=== PATIENT | female | born 1960 | race Caucasian/White ===

== ENCOUNTER 2019-07-01 16:24 | Inpatient (IN) | payer MEDICARE, OTHER, SELFPAY ==
[2019-07-01] MEDS ORDERED: cefTRIAXone\\ROCEPHIN 2 GM VIAL ONE (17:07)
[2019-07-01] MEDS ORDERED: methylPREDNISolone Sod Succ/PF 125 MG/2 ML VIAL ONE (17:07)
[2019-07-01 17:14] LABS: #Basophils 0.1 thou/uL (0.0-0.2); #Eosinphils 0.1 thou/uL (0.0-0.7); #Lymphocytes 3.4 thou/uL (1.20-3.40); #Monocytes 0.9 thou/uL (0.11-0.59); #Neutrophils 9.8 thou/uL (1.40-6.50); %Basophils 0.6 % (0.0-1.0); %Eosinophils 0.8 % (0.0-10.0); %Lymphocytes 23.6 % (21.0-51.0); %Monocytes 6.5 % (0.0-10.0); %Neutrophils 68.5 % (42.0-75.0); Hemoglobin 15.9 g/dL (12.0-16.0); Mean Corpuscular HGB CONC 32.8 g/dL (32.0-36.0); Mean Corpuscular Hemoglobin 29.5 pg (27.0-31.0); Mean Corpuscular Volume 90.1 fL (78.0-98.0); Mean Platelet Volume 8.1 fL (7.4-10.4); Platelet Count 256 thou/uL (130-400); RBC Distribution Width 12.1 % (11.5-14.5); Red Blood Cell (RBC) Count 5.39 mill/uL (4.20-5.40); White Blood Cell (WBC) Count 14.4 thou/uL (4.8-10.8)
--- NOTE | 2019-07-01 17:29 | RAD ---
PORTABLE CHEST: 07/01/19 HISTORY: Shortness of breath. COMPARISON: 09/05/16 exam. Heart size and mediastinum are within normal limits. The lungs are clear of infiltrates. No significa nt bony findings. IMPRESSION: No active intrathoracic disease. POS: [facility]
[2019-07-01 17:34] LABS: Base Excess-Venous 7.9 mmol/L (-2.0 to 3.0); Bicarbonate (HCO3v) 36.6 mmol/L (22.0-28.0); CO2 Tension (PvCO2) 66.6 mmHg (40.0-50.0); Calcium, Ionized 1.14 mmol/L (See Comments:); Chloride 98 mmol/L (98-107); Hemoglobin - Calc 15.7 g/dL (12.0-16.0); Potassium 5.2 mmol/L (3.5-5.1); Sodium 143 mmol/L (138-145); T. Carbon Dioxide 38.6 mmol/L (22.0-28.0); vO2 Saturation-calc 52.6 % (60.0-85.0)
[2019-07-01 17:35] LABS: ALT (SGPT) 13 U/L (8-55); AST (SGOT) 11 U/L (5-34); Albumin 3.8 g/dL (3.5-5.0); Alkaline Phosphatase 115 U/L (40-110); Anion Gap 15 mmol/L (10-20); BUN (Urea Nitrogen) 11 mg/dL (9.8-20.1); Bilirubin, Total 0.3 mg/dL (0.2-1.2); Calc. Creatinine Clearance 0 mL/min (70-130); Calcium 9.6 mg/dL (7.8-10.44); Carbon Dioxide 35 mmol/L (22-29); Chloride 98 mmol/L (98-107); Estimated GFR-MDRD 87; Glucose 129 mg/dL (70-105); Potassium 3.5 mmol/L (3.5-5.1); Protein, Total 6.8 g/dL (6.0-8.3); Sodium 144 mmol/L (136-145)
[2019-07-01] MEDS ORDERED: Azithromycin 500 MG VIAL ONE (17:39)
[2019-07-01] MEDS ORDERED: Nicotine 14 MG PATCH TD PRN (18:43)
[2019-07-01] MEDS ORDERED: Acetaminophen 325 MG TAB PO PRN (18:45)
[2019-07-01 19:23] VITALS: BMI 39.1
[2019-07-01 20:05] LABS: Lactic Acid 1.6 mmol/L (0.5-2.2)
[2019-07-01] MEDS: Senokot S 8.6-50 MG TAB PO SCH (20:26)
[2019-07-01] MEDS: ALPRAZolam 0.25 MG TAB PO PRN (20:26)
[2019-07-01] MEDS: guaiFENesin ER 600 MG TAB PO SCH (20:26)
[2019-07-01] MEDS: Famotidine 20 MG TAB PO SCH (20:26)
[2019-07-01] MEDS: Melatonin 3 MG TAB PO PRN (20:33)
[2019-07-01] MEDS: Cyclobenzaprine 10 MG TAB PO PRN (20:33)
[2019-07-01] MEDS: methylPREDNISolone Sod Succ 40 MG VIAL IVP SCH (23:52)
[2019-07-02] MEDS: methylPREDNISolone Sod Succ 40 MG VIAL IVP SCH ×3 (05:33→17:30)
[2019-07-02] MEDS: Budesonide 0.5 MG/2 ML NEB INH SCH ×2 (06:18→18:37)
[2019-07-02 06:50] LABS: Anion Gap 13 mmol/L (10-20); BUN (Urea Nitrogen) 10 mg/dL (9.8-20.1); Calc. Creatinine Clearance 145 mL/min (70-130); Calcium 9.2 mg/dL (7.8-10.44); Carbon Dioxide 32 mmol/L (22-29); Chloride 99 mmol/L (98-107); Estimated GFR-MDRD 90; Glucose 245 mg/dL (70-105); Potassium 4.2 mmol/L (3.5-5.1); Sodium 140 mmol/L (136-145)
--- NOTE | 2019-07-02 08:51 | HP ---
The patient was seen and examined on 01 July 2019 around 6:00 p.m. CHIEF COMPLAINT: Shortness of breath. HISTORY OF PRESENT ILLNESS: The patient is a 59-year-old white female with COPD, ongoing tobacco abuse, on intermittent home O2, presented to the emergency room with shortness of breath and audible wheezing, that has been ongoing for last 1 to 2 weeks. Her symptoms have been progressively getting worse. She has cough productive of thick whitish phlegm. She gets short of breath on minimal exertion. Recently, she have been short of breath while resting. She denies recent immobilization, travel, lower extremity edema, or orthopnea. She wears O2 especially at night. She tried using nebulizer without much relief. She was started on Keflex along with prednisone by her primary care physician without much relief. She presented to the emergency room. Her O2 saturation on ER arrival was 84% on room air with temperature of 99.2, respirations of 24, pulse rate of 113, with a blood pressure 132/75. She received azithromycin, ceftriaxone, Solu-Medrol, IV fluids with DuoNebs in the emergency room. PAST MEDICAL HISTORY: 1. Chronic obstructive pulmonary disease. 2. Tobacco abuse. The patient has not smoked since last week. 3. Anxiety. 4. Hyperlipidemia. 5. Depression. 6. Obesity with a BMI of 39.1. 7. History of colon cancer. PAST SURGICAL HISTORY: 1. Colon resection. 2. Tonsillectomy. ALLERGIES: NO KNOWN DRUG ALLERGIES. CURRENT HOME MEDICATIONS: 1. Albuterol inhaler as needed. 2. Nebulizer treatments. 3. Xanax as needed. 4. Ibuprofen as needed. 5. Keflex and prednisone, which was recently started. She could not bring the accurate list of medications. SOCIAL HISTORY: The patient smoked until last week. She denies any drug use. She currently lives with the . No significant alcohol use. She denies any drug use. FAMILY HISTORY: Negative for premature coronary artery disease. REVIEW OF SYSTEMS: All other review of systems was reviewed and were found negative. PHYSICAL EXAMINATION: VITAL SIGNS: As discussed above. GENERAL: A 59-year-old female in [id number] respiratory distress. Feels somewhat better. HEENT: Head, atraumatic and normocephalic. Sclerae anicteric. Moist mucous membrane. No oral lesion. NECK: Supple. No JVD. No carotid bruit. LUNGS: Show diffuse expiratory wheezing with rhonchi, with scattered rales at bases. There was accessory muscle use. HEART: S1 and S2 present. Tachycardic. No rubs or gallops. ABDOMEN: Soft, obese. Bowel sounds present. There is periumbilical hernia. No rebound or guarding. EXTREMITIES: No calf tenderness. There is 1+ edema in bilateral lower extremity up to the knees. No calf tenderness. SKIN: Warm and dry. LYMPH NODE: No palpable lymph nodes in the neck. NEUROLOGIC: Grossly nonfocal. PSYCHIATRIC: Alert, awake, oriented x3. Normal affect. PERIPHERAL VASCULAR: Radial pulses palpable bilaterally. MUSCULOSKELETAL: No joint swelling or tenderness. LABORATORY FINDINGS: WBC 14.4 with hemoglobin 15.9, platelet count 256. VBG showed pH of 7.34 with pCO2 of 66.6, bicarbonate 37 with PO2 of 30.7. Chemistry showed sodium 144, potassium 3.5, chloride 98, bicarb 35, BUN 11, creatinine 0.69. Troponin was negative. Lactic acid 2.3 on admission that improved to 1.6 after IV hydration. Blood cultures have been obtained. Chest x-ray by my review was negative for definite infiltrate. EKG by my review showed sinus tachycardia without significant ST-T wave changes. IMPRESSION: 1. Acute on chronic hypoxic respiratory failure secondary to COPD exacerbation. 2. Sepsis due to #1. 3. Anxiety. 4. Depression, mild, stable. 5. Degenerative joint disease. 6. Obesity with a BMI of 39.1. 7. Chronic kidney disease, stage 2. 8. Ongoing tobacco abuse. 9. Sinus tachycardia secondary to #1. 10. Suspected obstructive sleep apnea, not on CPAP. PLAN: The patient will be monitored on the medical floor. We will continue empiric antibiotics with steroids. Nebulizer treatment every 4 hours. The patient was extensively counseled to quit smoking. DVT prophylaxis with Lovenox. Consult Pulmonary, Dr. Aj. Plan was discussed with the patient in detail. She stated understanding. Please note, the patient was seen and examined on 01 July 2019. Job ID: [id number]
[2019-07-02] MEDS: guaiFENesin ER 600 MG TAB PO SCH ×2 (08:56→20:38)
[2019-07-02] MEDS: Famotidine 20 MG TAB PO SCH ×2 (08:56→20:37)
[2019-07-02] MEDS: Calcium Carbonate + Vit D 1 TAB PO SCH ×2 (08:56→16:10)
[2019-07-02] MEDS: Multivit, Therapeutic 1 TAB PO SCH (08:56)
[2019-07-02] MEDS: Saccharomyces boulardii 250 MG CAP PO SCH (08:56)
[2019-07-02] MEDS: Ibuprofen 200 MG TAB PO PRN ×2 (08:56→20:38)
[2019-07-02] MEDS: Enoxaparin Sodium 40 MG/0.4 ML SYRINGE SC SCH (08:56)
[2019-07-02] MEDS: Senokot S 8.6-50 MG TAB PO SCH ×2 (08:56→20:38)
[2019-07-02] MEDS: ALPRAZolam 0.25 MG TAB PO PRN (08:56)
[2019-07-02] MEDS ORDERED: FLU VACC QS2019-20(6MOS UP)/PF 60 MCG/0.5 ML SYRINGE IM ONE (09:00)
[2019-07-02 09:20] LABS: Hemoglobin A1c 6.5 % (4.0-6.0)
[2019-07-02] MEDS ORDERED: Insulin Regular 300 UNITS/3 ML VIAL SC PRN ×2 (09:58)
[2019-07-02] MEDS ORDERED: Dextrose 50% Abboject 50 ML SYRINGE SLOW IVP PRN (09:58)
[2019-07-02] MEDS ORDERED: Dextrose 5% in Water 1,000 ML IV PRN (09:58)
[2019-07-02] MEDS: cefTRIAXone\\ROCEPHIN 2 GM in Sodium Chloride 0.9% 100 ML IVPB SCH (16:10)
--- NOTE | 2019-07-02 17:11 | PDOC.HOSPP ---
- Subjective Encounter Date: 07/02/19 Encounter Time: 12:45 Subjective: Patient seen and examined for resp failure. SOB improving. Cough with mild production. No new complaints. No overnight events - Objective Vital Signs & Weight: Vital Signs (12 hours) Temp Pulse Resp BP Pulse Ox 07/02/19 16:23 98.7 F 89 18 94 L 07/02/19 14:37 95 16 07/02/19 11:00 98.4 F 82 18 107/71 94 L 07/02/19 10:15 80 16 07/02/19 08:00 94 L 07/02/19 07:52 98.8 F 80 18 124/78 94 L 07/02/19 06:20 92 L 07/02/19 06:19 92 L 07/02/19 06:18 76 16 Weight Weight 221 lb I&O: 07/01/19 07/02/19 07/03/19 06:59 06:59 06:59 Intake Total 960 Balance 960 Result Diagrams: 07/03/19 04:21 07/04/19 04:57 Additional Labs: Accuchecks 07/02/19 07/02/19 16:30 11:33 POC Glucose 154 H 168 H Radiology Reviewed by me: Yes (CXR - no pneumonia) Hospitalist ROS - Review of Systems Cardiovascular: denies: chest pain, palpitations, orthopnea, paroxysmal noc. dyspnea, edema, light headedness, other Gastrointestinal: denies: nausea, vomiting, abdominal pain, diarrhea, constipation, melena, hematochezia, other - Medication Medications: Active Medications Generic Name Dose Route Start Last Admin Trade Name Freq PRN Reason Stop Dose Admin Albuterol/Ipratropium 3 ml 07/01/19 22:30 07/02/19 14:37 Duoneb NEB 3 ml [id number] AMARIS Administration Albuterol/Ipratropium 3 ml 07/01/19 18:42 07/01/19 19:26 Duoneb NEB 3 ml [id number] PRN Administration SOB &/or Wheezing Budesonide 0.5 mg 07/02/19 06:30 07/02/19 06:18 Pulmicort Neb Solution INH 0.5 mg BID-RT AMRAIS Administration Calcium/Vitamin D 1 tab 07/02/19 08:00 07/02/19 16:10 Caltrate 600 + Vit D PO 1 tab BID-WM AMARIS Administration Cyclobenzaprine HCl 10 mg 07/01/19 18:43 07/01/19 20:33 Flexeril PO 07/04/19 18:44 10 mg TID PRN Administration Muscle Spasm Enoxaparin Sodium 40 mg 07/02/19 09:00 07/02/19 08:56 Lovenox SC 40 mg 0900 AMARIS Administration Famotidine 20 mg 07/01/19 21:00 07/02/19 08:56 Pepcid PO 20 mg BID AMARIS Administration Guaifenesin 600 mg 07/01/19 21:00 07/02/19 08:56 Mucinex PO 600 mg Q12HR AMARIS Administration Ceftriaxone Sodium 2 gm/ 100 mls @ 200 mls/hr 07/02/19 17:00 07/02/19 16:10 Sodium Chloride IVPB 100 mls 1700 AMARIS Administration Ibuprofen 400 mg 07/01/19 18:43 07/02/19 08:56 Motrin PO 400 mg Q6H PRN Administration Pain Melatonin 3 mg 07/01/19 18:43 07/01/19 20:33 Melatonin PO 3 mg HS PRN Administration Insomnia Methylprednisolone Sodium Succinate 40 mg 07/01/19 23:59 07/02/19 12:13 Solu-Medrol IVP 40 mg Q6HR AMARIS Administration Multivitamins 1 tab 07/02/19 09:00 07/02/19 08:56 Theragran PO 1 tab DAILY AMARIS Administration Saccharomyces Boulardii 250 mg 07/02/19 09:00 07/02/19 08:56 Florastor PO 250 mg DAILY AMARIS Administration Senna/Docusate Sodium 1 tab 07/01/19 21:00 07/02/19 08:56 Senokot S PO 1 tab BID AMARIS Administration - Exam General Appearance: NAD Heart: no murmur, no gallops, no rubs, normal peripheral pulses Respiratory: normal chest expansion, rales, rhonchi, wheezes Gastrointestinal: soft, non-tender Extremities: no edema Neurological: no new deficit Psychiatric: normal affect, A&O x 3 Hosp A/P - Plan DVT proph w/lovenox, DVT proph w/SCDs Acute on chronic hypoxic respiratory failure secondary to COPD exacerbation. Sepsis due to #1. Anxiety. New DM2 - A1c 6.5 Depression, mild, stable. Degenerative joint disease. Obesity with a BMI of 39.1. Chronic kidney disease, stage 2. Ongoing tobacco abuse. Counselled Sinus tachycardia secondary to #1. Suspected obstructive sleep apnea, not on CPAP. PLAN: Cont Nebs/O2 Cont Ceftriaxone/Azithromycin Cont Steroids Consult Dean Of Faculty Patient declined sliding scale Add low dose Metformin Counseled on DM
[2019-07-02] MEDS: Azithromycin 500 MG in Sodium Chloride 0.9% 250 ML 250 ML IVPB SCH (17:29)
[2019-07-02] MEDS: ALPRAZolam 0.5 MG TAB PO PRN ×2 (21:24→21:30)
[2019-07-02] MEDS: Melatonin 3 MG TAB PO PRN ×2 (21:24→21:30)
[2019-07-02] MEDS: Cyclobenzaprine 10 MG TAB PO PRN (21:33)
[2019-07-03] MEDS: methylPREDNISolone Sod Succ 40 MG VIAL IVP SCH ×5 (00:29→23:45)
[2019-07-03 04:42] LABS: #Lymphocytes 1.5 thou/uL (1.20-3.40); #Monocytes 0.7 thou/uL (0.11-0.59); #Neutrophils 16.5 thou/uL (1.40-6.50); %Basophils 0.1 % (0.0-1.0); %Eosinophils 0.2 % (0.0-10.0); %Lymphocytes 8.1 % (21.0-51.0); %Monocytes 3.6 % (0.0-10.0); Hemoglobin 15.1 g/dL (12.0-16.0); Mean Corpuscular HGB CONC 32.3 g/dL (32.0-36.0); Mean Corpuscular Hemoglobin 29.3 pg (27.0-31.0); Mean Corpuscular Volume 90.9 fL (78.0-98.0); Mean Platelet Volume 7.9 fL (7.4-10.4); Platelet Count 280 thou/uL (130-400); RBC Distribution Width 12.1 % (11.5-14.5); Red Blood Cell (RBC) Count 5.13 mill/uL (4.20-5.40); White Blood Cell (WBC) Count 18.8 thou/uL (4.8-10.8)
[2019-07-03 05:10] LABS: Anion Gap 12 mmol/L (10-20); BUN (Urea Nitrogen) 12 mg/dL (9.8-20.1); Calc. Creatinine Clearance 149 mL/min (70-130); Calcium 9.6 mg/dL (7.8-10.44); Carbon Dioxide 33 mmol/L (22-29); Chloride 100 mmol/L (98-107); Estimated GFR-MDRD Greater than 90; Glucose 157 mg/dL (70-105); Potassium 4.6 mmol/L (3.5-5.1); Sodium 140 mmol/L (136-145)
[2019-07-03] MEDS: Budesonide 0.5 MG/2 ML NEB INH SCH ×2 (07:56→18:31)
[2019-07-03] MEDS: Multivit, Therapeutic 1 TAB PO SCH (08:20)
[2019-07-03] MEDS: Calcium Carbonate + Vit D 1 TAB PO SCH ×2 (08:20→17:06)
[2019-07-03] MEDS: Saccharomyces boulardii 250 MG CAP PO SCH (08:20)
[2019-07-03] MEDS: Famotidine 20 MG TAB PO SCH ×2 (08:20→20:36)
[2019-07-03] MEDS: Senokot S 8.6-50 MG TAB PO SCH ×2 (08:20→20:36)
[2019-07-03] MEDS: metFORMIN 500 MG TAB PO SCH (08:20)
[2019-07-03] MEDS: guaiFENesin ER 600 MG TAB PO SCH ×2 (08:20→20:36)
[2019-07-03] MEDS: Enoxaparin Sodium 40 MG/0.4 ML SYRINGE SC SCH (08:20)
[2019-07-03] MEDS: ALPRAZolam 0.5 MG TAB PO PRN ×2 (08:25→23:45)
[2019-07-03] MEDS: Ibuprofen 200 MG TAB PO PRN (08:25)
[2019-07-03] MEDS: Cyclobenzaprine 10 MG TAB PO PRN ×2 (08:25→23:45)
--- NOTE | 2019-07-03 13:34 | CON ---
DATE OF CONSULTATION: HISTORY OF PRESENT ILLNESS: Ms. Duong was seen today in consultation for COPD. When I arrived in the room, she was asleep with her chin in her food. She awakened quickly, was in no distress. She says she is feeling better than when she came in. She presented with complaints of shortness of breath with minimal exertion, going on for several weeks. PAST MEDICAL HISTORY: Remarkable for: 1. COPD. I saw her back in 2017, but she never came back to the office. 2. Probable sleep apnea. 3. Anxiety. 4. Lipid disorder. 5. Obesity. 6. History of colon cancer, resected. 7. History of tonsillectomy. MEDICATIONS: 1. She has a nebulizer at home. 2. Xanax. 3. Albuterol. SOCIAL HISTORY: She still smokes up to a pack a day. She is not a drug user. She does not a daily drinker. FAMILY HISTORY: Negative for lung disease in early age. REVIEW OF SYSTEMS: Otherwise negative. PHYSICAL EXAMINATION: VITAL SIGNS: Afebrile, heart rate is 85, respiratory rate 20, oximetry is 92% on 2.5L. HEAD AND NECK: Remarkable for no lymphadenopathy. Extraocular movements are intact. Sclerae are anicteric. LUNGS: Remarkable for end-expiratory wheezes. HEART: Regular rhythm. ABDOMEN: Soft. EXTREMITIES: Without clubbing, cyanosis, or edema. LABORATORY DATA: White count is 18.8, hemoglobin 15.1, and platelets 280. Electrolytes are unremarkable, bicarb is 33. There is no arterial blood gas. There is a venous gas in the ER. Chest x-ray showed no infiltrates. IMPRESSION: 1. Chronic obstructive pulmonary disease exacerbation. 2. Obesity. 3. Probable severe sleep apnea. PLAN: We again discussed a sleep study. She wants to use her father's CPAP. This isn't the best idea, but it is probably better nothing. I will start her on CPAP of 10 with sleep and see how she does tonight, just treat her empirically. Job ID: [id number]
[2019-07-03] MEDS: cefTRIAXone\\ROCEPHIN 2 GM in Sodium Chloride 0.9% 100 ML IVPB SCH (17:05)
[2019-07-03] MEDS: Azithromycin 500 MG in Sodium Chloride 0.9% 250 ML 250 ML IVPB SCH (17:06)
[2019-07-04] MEDS: Ibuprofen 200 MG TAB PO PRN ×2 (03:02→21:34)
[2019-07-04] MEDS: methylPREDNISolone Sod Succ 40 MG VIAL IVP SCH ×2 (05:36→11:45)
[2019-07-04 05:41] LABS: Anion Gap 10 mmol/L (10-20); BUN (Urea Nitrogen) 14 mg/dL (9.8-20.1); Calc. Creatinine Clearance 145 mL/min (70-130); Calcium 9.3 mg/dL (7.8-10.44); Carbon Dioxide 37 mmol/L (22-29); Chloride 97 mmol/L (98-107); Estimated GFR-MDRD 90; Glucose 161 mg/dL (70-105); Potassium 4.8 mmol/L (3.5-5.1); Sodium 139 mmol/L (136-145)
--- NOTE | 2019-07-04 07:20 | PDOC.HOSPP ---
- Subjective Encounter Date: 07/03/19 Encounter Time: 08:30 Subjective: Patient seen and examined for resp failure. SOB improving. No fever or chills. Productive cough. No new complaints. No overnight events - Objective Vital Signs & Weight: Vital Signs (12 hours) Temp Pulse Resp BP Pulse Ox 07/04/19 01:58 86 18 94 L 07/04/19 00:14 89 24 H 94 L 07/03/19 22:09 88 22 H 90 L 07/03/19 21:00 98.8 F 84 18 145/93 H 88 L 07/03/19 20:00 90 L Weight Weight 221 lb I&O: 07/03/19 07/04/19 07/05/19 06:59 06:59 06:59 Intake Total 560 Balance 560 Result Diagrams: 07/03/19 04:21 07/04/19 04:57 Hospitalist ROS - Review of Systems Cardiovascular: denies: chest pain, palpitations, orthopnea, paroxysmal noc. dyspnea, edema, light headedness, other Gastrointestinal: denies: nausea, vomiting, abdominal pain, diarrhea, constipation, melena, hematochezia, other - Medication Medications: Active Medications Generic Name Dose Route Start Last Admin Trade Name Freq PRN Reason Stop Dose Admin Acetaminophen 650 mg 07/01/19 18:45 07/03/19 23:45 Tylenol PO 650 mg Q4H PRN Administration Headache/Fever/Mild Pain (1-3) Albuterol/Ipratropium 3 ml 07/01/19 22:30 07/04/19 01:58 Duoneb NEB 3 ml [id number] AMARIS Administration Albuterol/Ipratropium 3 ml 07/01/19 18:42 07/01/19 19:26 Duoneb NEB 3 ml [id number] PRN Administration SOB &/or Wheezing Alprazolam 0.5 mg 07/02/19 13:26 07/03/19 23:45 Xanax PO 0.5 mg TIDPRN PRN Administration Anxiety Budesonide 0.5 mg 07/02/19 06:30 07/03/19 18:31 Pulmicort Neb Solution INH 0.5 mg BID-RT AMARIS Administration Calcium/Vitamin D 1 tab 07/02/19 08:00 07/03/19 17:06 Caltrate 600 + Vit D PO 1 tab BID-WM AMARIS Administration Cyclobenzaprine HCl 10 mg 07/01/19 18:43 07/03/19 23:45 Flexeril PO 07/04/19 18:44 10 mg TID PRN Administration Muscle Spasm Enoxaparin Sodium 40 mg 07/02/19 09:00 07/03/19 08:20 Lovenox SC 40 mg 0900 AMARIS Administration Famotidine 20 mg 07/01/19 21:00 07/03/19 20:36 Pepcid PO 20 mg BID AMARIS Administration Guaifenesin 600 mg 07/01/19 21:00 07/03/19 20:36 Mucinex PO 600 mg Q12HR AMARIS Administration Azithromycin 500 mg/ Sodium 250 mls @ 250 mls/hr 07/02/19 18:00 07/03/19 17: 06 Chloride IVPB 250 mls 1800 AMARIS Administration Ceftriaxone Sodium 2 gm/ 100 mls @ 200 mls/hr 07/02/19 17:00 07/03/19 17:05 Sodium Chloride IVPB 100 mls 1700 AMARIS Administration Ibuprofen 400 mg 07/01/19 18:43 07/04/19 03:02 Motrin PO 400 mg Q6H PRN Administration Pain Melatonin 3 mg 07/01/19 18:43 07/02/19 21:30 Melatonin PO 3 mg HS PRN Administration Insomnia Metformin HCl 500 mg 07/03/19 08:00 07/03/19 08:20 Glucophage PO 500 mg QAM-WM AMARIS Administration Methylprednisolone Sodium Succinate 40 mg 07/01/19 23:59 07/04/19 05:36 Solu-Medrol IVP 40 mg Q6HR AMARIS Administration Multivitamins 1 tab 07/02/19 09:00 07/03/19 08:20 Theragran PO 1 tab DAILY AMARIS Administration Saccharomyces Boulardii 250 mg 07/02/19 09:00 07/03/19 08:20 Florastor PO 250 mg DAILY AMARIS Administration Senna/Docusate Sodium 1 tab 07/01/19 21:00 07/03/19 20:36 Senokot S PO 1 tab BID AMARIS Administration - Exam General Appearance: NAD Heart: RRR, no gallops Respiratory: rales, rhonchi Gastrointestinal: soft, non-tender, normal bowel sounds Extremities: no cyanosis Hosp A/P - Plan DVT proph w/lovenox Acute on chronic hypoxic respiratory failure secondary to COPD exacerbation. Sepsis due to #1. Anxiety. New DM2 - A1c 6.5 Depression, mild, stable. Degenerative joint disease. Obesity with a BMI of 39.1. Chronic kidney disease, stage 2. Ongoing tobacco abuse. Counselled Sinus tachycardia secondary to #1. Suspected obstructive sleep apnea, not on CPAP. PLAN: Cont Nebs/O2 Cont Ceftriaxone/Azithromycin Cont Steroids Consult Electrical Drafter Cont Metformin BMP in AM
[2019-07-04] MEDS: Budesonide 0.5 MG/2 ML NEB INH SCH ×2 (08:14→18:44)
[2019-07-04] MEDS: Famotidine 20 MG TAB PO SCH ×2 (09:06→20:55)
[2019-07-04] MEDS: metFORMIN 500 MG TAB PO SCH (09:06)
[2019-07-04] MEDS: guaiFENesin ER 600 MG TAB PO SCH ×2 (09:06→20:55)
[2019-07-04] MEDS: Multivit, Therapeutic 1 TAB PO SCH (09:06)
[2019-07-04] MEDS: Calcium Carbonate + Vit D 1 TAB PO SCH ×2 (09:06→17:37)
[2019-07-04] MEDS: Saccharomyces boulardii 250 MG CAP PO SCH (09:06)
[2019-07-04] MEDS: Senokot S 8.6-50 MG TAB PO SCH ×2 (09:06→20:55)
[2019-07-04] MEDS: Enoxaparin Sodium 40 MG/0.4 ML SYRINGE SC SCH (09:07)
--- NOTE | 2019-07-04 09:37 | PRG ---
DATE OF SERVICE: 07/04/2019 SUBJECTIVE: Magali Duong has no complaints. She fell asleep this morning in the bathroom, fell asleep in bed. She did not like the CPAP last night. Cultures were all negative. She is no longer wheezing. IMPRESSION: 1. Chronic obstructive pulmonary disease exacerbation. 2. Untreated sleep apnea. Her sister, who is a nurse has told repeatedly that she needs to get a sleep study. I have explained to her that she needs to see her [facility] physician in followup 2 to 3 weeks after discharge and have them schedule a sleep study. If there are any questions about the sleep study. I will be happy to see her in the office. Job ID: [id number]
[2019-07-04] MEDS: cefTRIAXone\\ROCEPHIN 2 GM in Sodium Chloride 0.9% 100 ML IVPB SCH (17:37)
[2019-07-04] MEDS: Azithromycin 500 MG in Sodium Chloride 0.9% 250 ML 250 ML IVPB SCH (17:37)
--- NOTE | 2019-07-04 18:33 | PDOC.HOSPP ---
- Subjective Encounter Date: 07/04/19 Encounter Time: 15:30 Subjective: Patient seen and examined for Resp failure. SOb improving. No fever or chills. No new complaints. No overnight events - Objective Vital Signs & Weight: Vital Signs (12 hours) Temp Pulse Resp BP Pulse Ox 07/04/19 15:35 98.2 F 99 22 H 113/77 91 L 07/04/19 11:52 98.5 F 89 20 136/85 93 L 07/04/19 10:56 96 20 90 L 07/04/19 08:14 88 18 89 L 07/04/19 08:12 92 L 07/04/19 07:44 98.5 F 88 21 H 141/82 H 92 L Weight Weight 221 lb I&O: 07/03/19 07/04/19 07/05/19 06:59 06:59 06:59 Intake Total 560 Balance 560 Result Diagrams: 07/03/19 04:21 07/04/19 04:57 Hospitalist ROS - Review of Systems Cardiovascular: denies: chest pain, palpitations, orthopnea, paroxysmal noc. dyspnea, edema, light headedness, other Gastrointestinal: denies: nausea, vomiting, abdominal pain, diarrhea, constipation, melena, hematochezia, other - Medication Medications: Active Medications Generic Name Dose Route Start Last Admin Trade Name Freq PRN Reason Stop Dose Admin Acetaminophen 650 mg 07/01/19 18:45 07/03/19 23:45 Tylenol PO 650 mg Q4H PRN Administration Headache/Fever/Mild Pain (1-3) Albuterol/Ipratropium 3 ml 07/01/19 22:30 07/04/19 14:57 Duoneb NEB Not Given [id number] AMARIS Albuterol/Ipratropium 3 ml 07/01/19 18:42 07/01/19 19:26 Duoneb NEB 3 ml [id number] PRN Administration SOB &/or Wheezing Alprazolam 0.5 mg 07/02/19 13:26 07/03/19 23:45 Xanax PO 0.5 mg TIDPRN PRN Administration Anxiety Budesonide 0.5 mg 07/02/19 06:30 07/04/19 08:14 Pulmicort Neb Solution INH 0.5 mg BID-RT AMARIS Administration Calcium/Vitamin D 1 tab 07/02/19 08:00 07/04/19 17:37 Caltrate 600 + Vit D PO 1 tab BID-WM AMARIS Administration Cyclobenzaprine HCl 10 mg 07/01/19 18:43 07/03/19 23:45 Flexeril PO 07/04/19 18:44 10 mg TID PRN Administration Muscle Spasm Enoxaparin Sodium 40 mg 07/02/19 09:00 07/04/19 09:07 Lovenox SC 40 mg 0900 AMARIS Administration Famotidine 20 mg 07/01/19 21:00 07/04/19 09:06 Pepcid PO 20 mg BID AMARIS Administration Guaifenesin 600 mg 07/01/19 21:00 07/04/19 09:06 Mucinex PO 600 mg Q12HR MAARIS Administration Azithromycin 500 mg/ Sodium 250 mls @ 250 mls/hr 07/02/19 18:00 07/04/19 17: 37 Chloride IVPB 07/04/19 23:59 250 mls 1800 AMARIS Administration Ceftriaxone Sodium 2 gm/ 100 mls @ 200 mls/hr 07/02/19 17:00 07/04/19 17:37 Sodium Chloride IVPB 07/04/19 23:59 100 mls 1700 AMARIS Administration Ibuprofen 400 mg 07/01/19 18:43 07/04/19 03:02 Motrin PO 400 mg Q6H PRN Administration Pain Melatonin 3 mg 07/01/19 18:43 07/02/19 21:30 Melatonin PO 3 mg HS PRN Administration Insomnia Metformin HCl 500 mg 07/03/19 08:00 07/04/19 09:06 Glucophage PO 500 mg QAM-WM AMARIS Administration Multivitamins 1 tab 07/02/19 09:00 07/04/19 09:06 Theragran PO 1 tab DAILY AMARIS Administration Saccharomyces Boulardii 250 mg 07/02/19 09:00 07/04/19 09:06 Florastor PO 250 mg DAILY AMARIS Administration Senna/Docusate Sodium 1 tab 07/01/19 21:00 07/04/19 09:06 Senokot S PO 1 tab BID AMARIS Administration Sodium Chloride 10 ml 07/01/19 18:45 07/04/19 11:46 Flush - Normal Saline IVF 10 ml PRN PRN Administration Saline Flush - Exam General Appearance: NAD Heart: RRR, no gallops Respiratory: rhonchi, wheezes Gastrointestinal: soft, non-distended Extremities: no edema Hosp A/P - Plan DVT proph w/lovenox, DVT proph w/SCDs Acute on chronic hypoxic respiratory failure secondary to COPD exacerbation. Sepsis due to #1. Anxiety. New DM2 - A1c 6.5 Depression, mild, stable. Degenerative joint disease. Obesity with a BMI of 39.1. CKD 2. Ongoing tobacco abuse. Counselled Sinus tachycardia secondary to #1. Suspected obstructive sleep apnea, not on CPAP. PLAN: Change Ceftriaxone/Azithromycin to PO Reduce Steroid dose - change to PO in AM Cont Nebs/O2 Cont Metformin Patient will need home O2. RA sat 88%
[2019-07-04] MEDS ORDERED: methylPREDNISolone Sod Succ 40 MG VIAL IVP SCH (22:00)
[2019-07-04] MEDS: ALPRAZolam 0.25 MG TAB PO PRN (22:46)
[2019-07-04] MEDS: Melatonin 3 MG TAB PO PRN (22:46)
[2019-07-05] MEDS: Budesonide 0.5 MG/2 ML NEB INH SCH ×2 (08:30→18:52)
[2019-07-05] MEDS: Famotidine 20 MG TAB PO SCH ×2 (08:40→20:19)
[2019-07-05] MEDS: Multivit, Therapeutic 1 TAB PO SCH (08:40)
[2019-07-05] MEDS: metFORMIN 500 MG TAB PO SCH (08:40)
[2019-07-05] MEDS: Cefdinir 300 MG CAP PO SCH ×2 (08:40→20:19)
[2019-07-05] MEDS: predniSONE 20 MG TAB PO SCH ×2 (08:40→17:05)
[2019-07-05] MEDS: Calcium Carbonate + Vit D 1 TAB PO SCH ×2 (08:40→17:05)
[2019-07-05] MEDS: guaiFENesin ER 600 MG TAB PO SCH ×2 (08:41→20:19)
[2019-07-05] MEDS: Saccharomyces boulardii 250 MG CAP PO SCH (08:41)
[2019-07-05] MEDS: Senokot S 8.6-50 MG TAB PO SCH ×2 (08:41→20:19)
[2019-07-05] MEDS: Enoxaparin Sodium 40 MG/0.4 ML SYRINGE SC SCH (08:41)
[2019-07-05] MEDS: Azithromycin 250 MG TAB PO SCH (08:41)
[2019-07-05] MEDS: Calcium Carbonate 500 MG ChewTAB PO PRN (13:41)
--- NOTE | 2019-07-05 16:17 | PDOC.HOSPP ---
- Subjective Encounter Date: 07/05/19 Encounter Time: 10:30 Subjective: Patient seen and examined for Resp failure. SOB improving. SOB/wheezing improving. No fever or chills. No new complaints. No overnight events - Objective Vital Signs & Weight: Vital Signs (12 hours) Temp Pulse Resp BP Pulse Ox 07/05/19 15:43 102 H 24 H 90 L 07/05/19 11:20 97.6 F 84 20 123/74 93 L 07/05/19 08:48 94 L 07/05/19 08:28 70 20 07/05/19 07:19 97.5 F L 70 24 H 138/86 90 L Weight Weight 221 lb I&O: 07/04/19 07/05/19 07/06/19 06:59 06:59 06:59 Intake Total 560 1520 Balance 560 1520 Result Diagrams: 07/03/19 04:21 07/04/19 04:57 Additional Labs: Accuchecks 07/05/19 11:29 POC Glucose 166 H Hospitalist ROS - Review of Systems Cardiovascular: denies: chest pain, palpitations, orthopnea, paroxysmal noc. dyspnea, edema, light headedness, other Gastrointestinal: denies: nausea, vomiting, abdominal pain, diarrhea, constipation, melena, hematochezia, other - Medication Medications: Active Medications Generic Name Dose Route Start Last Admin Trade Name Freq PRN Reason Stop Dose Admin Acetaminophen 650 mg 07/01/19 18:45 07/03/19 23:45 Tylenol PO 650 mg Q4H PRN Administration Headache/Fever/Mild Pain (1-3) Albuterol/Ipratropium 3 ml 07/01/19 22:30 07/05/19 15:43 Duoneb NEB 3 ml [id number] AMARIS Administration Albuterol/Ipratropium 3 ml 07/01/19 18:42 07/01/19 19:26 Duoneb NEB 3 ml [id number] PRN Administration SOB &/or Wheezing Alprazolam 0.25 mg 07/04/19 18:40 07/04/19 22:46 Xanax PO 0.25 mg BID PRN Administration Anxiety Azithromycin 250 mg 07/05/19 09:00 07/05/19 08:41 Zithromax PO 07/08/19 09:01 250 mg DAILY AMARIS Administration Budesonide 0.5 mg 07/02/19 06:30 07/05/19 08:30 Pulmicort Neb Solution INH 0.5 mg BID-RT AMARIS Administration Calcium Carbonate 1,000 mg 07/01/19 18:45 07/05/19 13:41 Tums PO 1,000 mg Q4H PRN Administration Heartburn or Indigestion Calcium/Vitamin D 1 tab 07/02/19 08:00 07/05/19 08:40 Caltrate 600 + Vit D PO 1 tab BID-WM AMARIS Administration Cefdinir 300 mg 07/05/19 09:00 07/05/19 08:40 Omnicef PO 300 mg BID AMARIS Administration Enoxaparin Sodium 40 mg 07/02/19 09:00 07/05/19 08:41 Lovenox SC 40 mg 0900 AMARIS Administration Famotidine 20 mg 07/01/19 21:00 07/05/19 08:40 Pepcid PO 20 mg BID AMARIS Administration Guaifenesin 600 mg 07/01/19 21:00 07/05/19 08:41 Mucinex PO 600 mg Q12HR AMARIS Administration Ibuprofen 400 mg 07/01/19 18:43 07/04/19 21:34 Motrin PO 400 mg Q6H PRN Administration Pain Melatonin 3 mg 07/01/19 18:43 07/04/19 22:46 Melatonin PO 3 mg HS PRN Administration Insomnia Metformin HCl 500 mg 07/03/19 08:00 07/05/19 08:40 Glucophage PO 500 mg QAM-WM AMARIS Administration Multivitamins 1 tab 07/02/19 09:00 07/05/19 08:40 Theragran PO 1 tab DAILY AMARIS Administration Prednisone 20 mg 07/05/19 08:00 07/05/19 08:40 Prednisone PO 20 mg BID-WM AMARIS Administration Saccharomyces Boulardii 250 mg 07/02/19 09:00 07/05/19 08:41 Florastor PO 250 mg DAILY AMARIS Administration Senna/Docusate Sodium 1 tab 07/01/19 21:00 07/05/19 08:41 Senokot S PO 1 tab BID AMARIS Administration Sodium Chloride 10 ml 07/01/19 18:45 07/04/19 11:46 Flush - Normal Saline IVF 10 ml PRN PRN Administration Saline Flush - Exam General Appearance: NAD Heart: RRR, no gallops Respiratory: rhonchi, wheezes (improving) Gastrointestinal: soft, non-distended Extremities: no cyanosis Hosp A/P - Plan DVT proph w/SCDs Acute on chronic hypoxic respiratory failure secondary to COPD exacerbation. Sepsis due to #1. Anxiety. New DM2 - A1c 6.5 Depression, mild, stable. Degenerative joint disease. Obesity with a BMI of 39.1. CKD 2. Ongoing tobacco abuse. Counselled Sinus tachycardia secondary to #1. Suspected obstructive sleep apnea, not on CPAP. PLAN: Cont PO Atbx/Steroids Await home O2 setup Cont Nebs/O2 Cont Metformin/Sliding scale DC in 24 hr if stable Sleep study as outpt
[2019-07-05] MEDS: Ibuprofen 200 MG TAB PO PRN (20:43)
[2019-07-05] MEDS: ALPRAZolam 0.25 MG TAB PO PRN (21:45)
[2019-07-05] MEDS: Melatonin 3 MG TAB PO PRN (21:45)
[2019-07-06] MEDS: Calcium Carbonate 500 MG ChewTAB PO PRN (02:11)
[2019-07-06] MEDS: Budesonide 0.5 MG/2 ML NEB INH SCH ×2 (06:21→18:39)
[2019-07-06 07:52] VITALS: BP 110/74; TEMP 98.6
[2019-07-06] MEDS: Saccharomyces boulardii 250 MG CAP PO SCH (08:13)
[2019-07-06] MEDS: Enoxaparin Sodium 40 MG/0.4 ML SYRINGE SC SCH (08:13)
[2019-07-06] MEDS: Famotidine 20 MG TAB PO SCH (08:13)
[2019-07-06] MEDS: ALPRAZolam 0.25 MG TAB PO PRN (08:13)
[2019-07-06] MEDS: predniSONE 20 MG TAB PO SCH ×2 (08:13→17:03)
[2019-07-06] MEDS: Azithromycin 250 MG TAB PO SCH (08:13)
[2019-07-06] MEDS: Calcium Carbonate + Vit D 1 TAB PO SCH ×2 (08:13→17:03)
[2019-07-06] MEDS: guaiFENesin ER 600 MG TAB PO SCH (08:13)
[2019-07-06] MEDS: Cefdinir 300 MG CAP PO SCH (08:13)
[2019-07-06] MEDS: Multivit, Therapeutic 1 TAB PO SCH (08:13)
[2019-07-06] MEDS: Senokot S 8.6-50 MG TAB PO SCH (08:14)
[2019-07-06] MEDS: metFORMIN 500 MG TAB PO SCH (08:14)
[2019-07-06] MEDS: Ibuprofen 200 MG TAB PO PRN (08:14)
--- NOTE | 2019-07-06 17:05 | DIS ---
DATE OF ADMISSION: 07/01/2019 DATE OF DISCHARGE: 07/06/2019 DISCHARGE DISPOSITION: Home. FOLLOWUP: 1. Follow up with primary care physician at [facility] in [place] in 1 week. 2. Follow up with Dr. Aj in 2 weeks. 3. Outpatient sleep study was recommended. ALLERGIES: NO KNOWN DRUG ALLERGIES. THE PATIENT WAS SEEN AND EXAMINED ON THE DAY OF DISCHARGE. DENIES ANY NEW COMPLAINTS. DISCHARGE MEDICATIONS: 1. Azithromycin 250 mg daily for 2 days. 2. Omnicef 300 mg b.i.d. 3. Pepcid 20 mg b.i.d. 4. Prednisone taper. 5. Nebulizer treatment was resumed. All other home medications were left unchanged. INPATIENT ASSISTANT PORTFOLIO MANAGER: Pulmonary, Dr. Aj. DIAGNOSTIC TESTS: Hemoglobin A1c of 6.5. Lactic acid on admission 2.3, improved. Potassium 3.5 with chloride of 98. Sodium 144. WBC 14.4 with hemoglobin 15.9. BRIEF HOSPITAL COURSE: The patient is a 59-year-old female with COPD and suspected obstructive sleep apnea, presented to the hospital on 07/01/2019 with shortness of breath. Please refer to the History and Physical for further details. The patient was admitted to the hospital with a diagnosis of acute on chronic hypoxic respiratory failure, secondary to COPD exacerbation. She showed good improvement with antibiotics, steroids, and nebulizer treatment. Home oxygen has been arranged. There was a delay in home oxygen due to holidays. The patient was also evaluated by Pulmonary, Dr. Aj. An outpatient sleep study was recommended. The patient was advised to follow up with Dr. Aj as an outpatient. Tobacco cessation was extensively emphasized. She was also diagnosed with diabetes mellitus, type 2, and was counseled by the dietitian. Hemoglobin A1c was 6.5. FINAL DIAGNOSES: 1. Acute on chronic hypoxic respiratory failure, secondary to chronic obstructive pulmonary disease exacerbation. 2. Sepsis, secondary to above. 3. Anxiety. 4. New diabetes with hemoglobin A1c 6.5. 5. Depression. 6. Degenerative joint disease. 7. Obesity with a BMI of 39.1. 8. Chronic kidney disease, stage 2. 9. Ongoing tobacco abuse. 10. Sinus tachycardia, secondary to acute on chronic hypoxic respiratory failure, improved. 11. Suspected obstructive sleep apnea. Job ID: [id number]
== END 2019-07-06 19:03 | disposition home or self-care (01) | DRG 871 ==
LOC: ERS 16:24 → T4-A 17:38
PROVIDERS: ADMIT Internal Medicine; ATTEND Internal Medicine
DX: A41.9 Sepsis, unspecified organism (principal); J96.21 Acute and chronic respiratory failure with hypoxia; J44.1 Chronic obstructive pulmonary disease with (acute) exacerbation; F41.9 Anxiety disorder, unspecified; E78.5 Hyperlipidemia, unspecified; E66.9 Obesity, unspecified; F32.9 Major depressive disorder, single episode, unspecified; Z85.038 Personal history of other malignant neoplasm of large intestine; Z90.49 Acquired absence of other specified parts of digestive tract; Z90.89 Acquired absence of other organs; Z79.899 Other long term (current) drug therapy; F17.200 Nicotine dependence, unspecified, uncomplicated; N18.2 Chronic kidney disease, stage 2 (mild); Z68.39 Body mass index [BMI] 39.0-39.9, adult; E11.22 Type 2 diabetes mellitus with diabetic chronic kidney disease; G47.33 Obstructive sleep apnea (adult) (pediatric); R00.0 Tachycardia, unspecified
CPT/HCPCS: 36415; 36416; 71045; 80048; 80053; 82330; 82803; 83036; 83605; 83735; 84484; 85025; 87040; 93005; 94640; 94660; 94760; 96365; 96367; 96375; J0456; J0696; J1650; J1815; J2920; J2930; J3490; J7050; J7512; J7620; J7626

== ENCOUNTER 2019-08-10 11:19 | Outpatient (CLI) | payer MEDICARE ==
--- NOTE | 2019-08-10 11:42 | RAD ---
RADIOGRAPH CHEST 2 VIEWS: DATE: 08/10/2019 HISTORY: 59-year-old female with dyspnea FINDINGS: There is no airspace density, pulmonary edema, pleural effusion, pneumothorax, or cardiomegaly. IMPRESSION: No acute cardiopulmonary findings.
== END 2019-08-10 11:20 | disposition home or self-care (01) ==
LOC: RAD 11:19
PROVIDERS: ATTEND Internal Medicine Critical Care Medicine
DX: R06.00 Dyspnea, unspecified (principal)
CPT/HCPCS: 71046

== ENCOUNTER 2020-10-01 08:11 | Outpatient (CLI) | payer MEDICARE ==
[2020-10-01] MEDS ORDERED: Iopamidol 370 76% 100 ML VIAL ONE (08:44)
== END 2020-10-01 08:12 | disposition home or self-care (01) ==
LOC: BICCT 08:11
PROVIDERS: ATTEND Internal Medicine Hematology & Oncology
DX: C18.7 Malignant neoplasm of sigmoid colon (principal); R19.00 Intra-abdominal and pelvic swelling, mass and lump, unspecified site; R97.0 Elevated carcinoembryonic antigen [CEA]; J43.9 Emphysema, unspecified; K76.89 Other specified diseases of liver; K46.9 Unspecified abdominal hernia without obstruction or gangrene; K42.9 Umbilical hernia without obstruction or gangrene
CPT/HCPCS: 71260; 74177; Q9967

== ENCOUNTER 2020-10-21 14:52 | Outpatient (CLI) | payer MEDICARE ==
[2020-10-22 02:10] LABS: SARS-CoV-2 PCR by NAA Not Detected (NotDetected)
== END 2020-10-21 14:53 | disposition home or self-care (01) ==
LOC: LABBT 14:52
PROVIDERS: ATTEND Internal Medicine Gastroenterology
DX: Z01.812 Encounter for preprocedural laboratory examination (principal); Z20.822 Contact with and (suspected) exposure to COVID-19
CPT/HCPCS: U0003; U0005; 87635

== ENCOUNTER 2020-10-24 06:33 | Day surgery (SDC) | payer MEDICARE ==
[2020-10-23 14:04] VITALS: BMI 39.6
[2020-10-24] MEDS ORDERED: PROPOFOL 200 MG/20 ML VIAL ONE (08:50)
== END 2020-10-24 10:20 | disposition home or self-care (01) ==
LOC: SDC 06:33
PROVIDERS: ATTEND Internal Medicine Gastroenterology
PROC: 0DJD8ZZ Inspection of Lower Intestinal Tract, Via Natural or Artificial Opening Endoscopic (ICD-10-PCS; principal; 2020-10-24)
DX: Z12.11 Encounter for screening for malignant neoplasm of colon (principal); K57.30 Diverticulosis of large intestine without perforation or abscess without bleeding; K64.8 Other hemorrhoids; J44.9 Chronic obstructive pulmonary disease, unspecified; F17.200 Nicotine dependence, unspecified, uncomplicated; Z79.899 Other long term (current) drug therapy; Z85.038 Personal history of other malignant neoplasm of large intestine
CPT/HCPCS: J2704; J7620

== ENCOUNTER 2022-03-25 11:57 | Outpatient (CLI) | payer MEDICARE | END 2022-03-25 11:58 | disposition home or self-care (01) | LOC: BICMAMMO 11:57 | PROVIDERS: ATTEND Nurse Practitioner Family | DX: Z12.31 Encounter for screening mammogram for malignant neoplasm of breast (principal); Z85.038 Personal history of other malignant neoplasm of large intestine | CPT/HCPCS: 77063; 77067 ==

== ENCOUNTER 2022-04-21 18:54 | Inpatient (IN) | payer MEDICARE, SELFPAY ==
[2022-04-21] MEDS ORDERED: methylPREDNISolone Sod Succ/PF 125 MG/2 ML VIAL ONE (19:19)
[2022-04-21 19:20] LABS: #Lymphocytes 0.6 thou/uL (1.20-3.40); #Neutrophils 8.5 thou/uL (1.40-6.50); %Eosinophils 0.2 % (0.0-10.0); %Lymphocytes 6.3 % (21.0-51.0); %Monocytes 0.3 % (0.0-10.0); %Neutrophils 93.2 % (42.0-75.0); Hemoglobin 17.8 g/dL (12.0-16.0); Mean Corpuscular HGB CONC 32.6 g/dL (32.0-36.0); Mean Corpuscular Hemoglobin 33.5 pg (27.0-31.0); Mean Platelet Volume 8.1 fL (7.4-10.4); Platelet Count 124 thou/uL (130-400); RBC Distribution Width 12.9 % (11.5-14.5); White Blood Cell (WBC) Count 9.1 thou/uL (4.8-10.8)
[2022-04-21 19:41] LABS: ALT (SGPT) 39 U/L (8-55); AST (SGOT) 32 U/L (5-34); Alkaline Phosphatase 118 U/L (40-110); Anion Gap 14 mmol/L (10-20); BUN (Urea Nitrogen) 13 mg/dL (9.8-20.1); Bilirubin, Total 0.9 mg/dL (0.2-1.2); Calc. Creatinine Clearance 0 mL/min (70-130); Calcium 9.5 mg/dL (7.8-10.44); Carbon Dioxide 35 mmol/L (22-29); Chloride 95 mmol/L (98-107); Estimated GFR 91; Globulin 3.4 g/dL (2.4-3.5); Glucose 235 mg/dL (70-105); Lipase 5 U/L (8-78); Potassium 4.8 mmol/L (3.5-5.1); Protein, Total 7.4 g/dL (6.0-8.3); Sodium 139 mmol/L (136-145)
[2022-04-21] MEDS ORDERED: Ondansetron PF 4 MG/2 ML Vial IVP PRN (21:24)
[2022-04-21] MEDS ORDERED: Ondansetron ODT 4 MG TAB PO PRN (21:24)
[2022-04-21 21:40] LABS: SARS-CoV-2 NAA Rapid Test Not Detected (NotDetected)
[2022-04-22] MEDS ORDERED: Azithromycin 500 MG VIAL ONE (01:35)
[2022-04-22] MEDS: Azithromycin 500 MG in Sodium Chloride 0.9% 250 ML 250 ML IVPB SCH ×2 (01:50→21:53)
[2022-04-22] MEDS ORDERED: Acetaminophen 325 MG TAB ONE ×2 (04:23→12:23)
[2022-04-22] MEDS: Acetaminophen 650 MG Suppository PR PRN ×2 (04:28→12:29)
[2022-04-22 06:41] LABS: #Lymphocytes 0.5 thou/uL (1.20-3.40); #Monocytes 0.2 thou/uL (0.11-0.59); #Neutrophils 7.5 thou/uL (1.40-6.50); %Basophils 0.1 % (0.0-1.0); %Eosinophils 0.1 % (0.0-10.0); %Lymphocytes 6.1 % (21.0-51.0); %Neutrophils 91.8 % (42.0-75.0); Hemoglobin 16.5 g/dL (12.0-16.0); Mean Corpuscular HGB CONC 31.9 g/dL (32.0-36.0); Mean Corpuscular Hemoglobin 32.9 pg (27.0-31.0); Mean Platelet Volume 8.4 fL (7.4-10.4); Platelet Count 121 thou/uL (130-400); RBC Distribution Width 12.7 % (11.5-14.5); Red Blood Cell (RBC) Count 5.02 mill/uL (4.20-5.40); White Blood Cell (WBC) Count 8.1 thou/uL (4.8-10.8)
[2022-04-22 06:56] LABS: Anion Gap 13 mmol/L (10-20); BUN (Urea Nitrogen) 11 mg/dL (9.8-20.1); Calc. Creatinine Clearance 0 mL/min (70-130); Calcium 9.1 mg/dL (7.8-10.44); Carbon Dioxide 34 mmol/L (22-29); Chloride 97 mmol/L (98-107); Estimated GFR 100; Glucose 181 mg/dL (70-105); Potassium 4.7 mmol/L (3.5-5.1); Sodium 139 mmol/L (136-145)
[2022-04-22] MEDS ORDERED: methylPREDNISolone Sod Succ 40 MG VIAL IVP SCH ×2 (09:00→17:00)
[2022-04-22] MEDS ORDERED: methylPREDNISolone Sod Succ 40 MG VIAL ONE (09:25)
[2022-04-22] MEDS ORDERED: Enoxaparin Sodium 40 MG/0.4 ML SYRINGE ONE (09:25)
[2022-04-22] MEDS: Enoxaparin Sodium 40 MG/0.4 ML SYRINGE SC SCH (09:31)
[2022-04-22 12:08] LABS: Actual Bicarbonate (HCO3a) 28.9 mEq/L (22-28); Analyzer IN Cardio ER; Base Excess (BEa) 2.4 mEq/L (-2.0 to +3.0); CO2 Tension 51.2 mmHg (35.0-45.0); Calcium, Ionized (arterial) 1.15 mmol/L (1.12-1.30); Carboxyhemoglobin (COHb) 1.1 gm% (0.0-3.0); Hemoglobin (Hb) 17.8 g/dL (12.0-16.0); O2 Tension (PaO2), arterial 67.1 mmHg (> 80.0); Potassium - ABG Lab 4.31 mmol/L (3.70-5.30); pH, Arterial 7.37 (7.35-7.45)
[2022-04-22 12:17] LABS: Puncture Site RRA
[2022-04-22] MEDS ORDERED: Acetaminophen 325 MG Suppository ONE (12:23)
[2022-04-22 15:25] VITALS: BMI 36.7
[2022-04-22] MEDS: Mometasone 100 MCG/Formoterol 5 MCG 120 PUFF INHALER INH SCH (18:53)
[2022-04-22] MEDS: Acetaminophen 325 MG TAB PO PRN (21:53)
[2022-04-22] MEDS: Melatonin 3 MG TAB PO PRN (21:54)
[2022-04-23] MEDS: Mometasone 100 MCG/Formoterol 5 MCG 120 PUFF INHALER INH SCH ×2 (07:07→18:44)
[2022-04-23] MEDS ORDERED: predniSONE 20 MG TAB PO SCH (08:00)
[2022-04-23] MEDS: FLUoxetine HCl 10 MG CAP PO SCH (08:11)
[2022-04-23] MEDS: metFORMIN 500 MG TAB PO SCH (08:11)
[2022-04-23] MEDS: Furosemide 40 MG TAB PO SCH (08:11)
[2022-04-23] MEDS: Enoxaparin Sodium 40 MG/0.4 ML SYRINGE SC SCH (08:12)
[2022-04-23] MEDS: Famotidine 20 MG TAB PO SCH (08:12)
[2022-04-23] MEDS ORDERED: FLU VACC QS2022-23(6MOS UP)/PF 60 MCG/0.5 ML SYRINGE IM ONE (09:00)
[2022-04-23] MEDS: Acetaminophen 325 MG TAB PO PRN ×2 (13:40→21:14)
[2022-04-23] MEDS: methylPREDNISolone Sod Succ 40 MG VIAL IVP SCH (16:56)
[2022-04-23] MEDS: Melatonin 3 MG TAB PO PRN (21:14)
[2022-04-23] MEDS: Azithromycin 500 MG in Sodium Chloride 0.9% 250 ML 250 ML IVPB SCH (21:14)
[2022-04-24] MEDS: methylPREDNISolone Sod Succ 40 MG VIAL IVP SCH ×5 (00:57→23:51)
[2022-04-24] MEDS: Mometasone 100 MCG/Formoterol 5 MCG 120 PUFF INHALER INH SCH ×2 (07:03→18:31)
[2022-04-24] MEDS: Famotidine 20 MG TAB PO SCH (08:38)
[2022-04-24] MEDS: Enoxaparin Sodium 40 MG/0.4 ML SYRINGE SC SCH (08:38)
[2022-04-24] MEDS: Furosemide 40 MG TAB PO SCH (08:38)
[2022-04-24] MEDS: metFORMIN 500 MG TAB PO SCH (08:38)
[2022-04-24] MEDS: FLUoxetine HCl 10 MG CAP PO SCH (08:38)
[2022-04-24] MEDS ORDERED: Bisacodyl 5 MG TAB PO PRN (19:33)
[2022-04-24] MEDS ORDERED: Senokot S 8.6-50 MG TAB PO PRN (19:33)
[2022-04-24] MEDS ORDERED: Nicotine 14 MG PATCH TD SCH (20:00)
[2022-04-24] MEDS: Azithromycin 500 MG in Sodium Chloride 0.9% 250 ML 250 ML IVPB SCH (21:18)
[2022-04-24] MEDS: Melatonin 3 MG TAB PO PRN (21:18)
[2022-04-25] MEDS: methylPREDNISolone Sod Succ 40 MG VIAL IVP SCH ×3 (06:02→19:34)
[2022-04-25] MEDS: Mometasone 100 MCG/Formoterol 5 MCG 120 PUFF INHALER INH SCH ×2 (07:43→18:49)
[2022-04-25] MEDS: Enoxaparin Sodium 40 MG/0.4 ML SYRINGE SC SCH (09:38)
[2022-04-25] MEDS: metFORMIN 500 MG TAB PO SCH (09:39)
[2022-04-25] MEDS: Furosemide 40 MG TAB PO SCH (09:39)
[2022-04-25] MEDS: FLUoxetine HCl 10 MG CAP PO SCH (09:39)
[2022-04-25] MEDS: Famotidine 20 MG TAB PO SCH (09:39)
[2022-04-25] MEDS: Acetaminophen 325 MG TAB PO PRN (10:46)
[2022-04-25] MEDS: Azithromycin 500 MG in Sodium Chloride 0.9% 250 ML 250 ML IVPB SCH (21:46)
[2022-04-25] MEDS: Melatonin 3 MG TAB PO PRN (21:46)
[2022-04-26] MEDS: methylPREDNISolone Sod Succ 40 MG VIAL IVP SCH ×2 (00:04→06:50)
[2022-04-26] MEDS: Mometasone 100 MCG/Formoterol 5 MCG 120 PUFF INHALER INH SCH ×2 (07:14→18:49)
[2022-04-26] MEDS: Famotidine 20 MG TAB PO SCH (09:20)
[2022-04-26] MEDS: FLUoxetine HCl 10 MG CAP PO SCH (09:20)
[2022-04-26] MEDS: Furosemide 40 MG TAB PO SCH (09:20)
[2022-04-26] MEDS: Enoxaparin Sodium 40 MG/0.4 ML SYRINGE SC SCH (09:20)
[2022-04-26] MEDS: metFORMIN 500 MG TAB PO SCH (09:20)
[2022-04-26] MEDS: Nicotine 21 MG PATCH TD SCH (09:21)
[2022-04-26] MEDS: predniSONE 20 MG TAB PO SCH ×2 (12:26→16:50)
[2022-04-26] MEDS: Azithromycin 500 MG in Sodium Chloride 0.9% 250 ML 250 ML IVPB SCH (22:29)
[2022-04-26] MEDS: Acetaminophen 325 MG TAB PO PRN (22:37)
[2022-04-27] MEDS: Mometasone 100 MCG/Formoterol 5 MCG 120 PUFF INHALER INH SCH ×2 (07:07→18:39)
[2022-04-27] MEDS: predniSONE 20 MG TAB PO SCH ×2 (08:32→12:19)
[2022-04-27] MEDS: Enoxaparin Sodium 40 MG/0.4 ML SYRINGE SC SCH (08:32)
[2022-04-27] MEDS: Furosemide 40 MG TAB PO SCH (08:32)
[2022-04-27] MEDS: Famotidine 20 MG TAB PO SCH (08:32)
[2022-04-27] MEDS: metFORMIN 500 MG TAB PO SCH (08:32)
[2022-04-27] MEDS: Nicotine 21 MG PATCH TD SCH (08:33)
[2022-04-27] MEDS: FLUoxetine HCl 10 MG CAP PO SCH (08:33)
[2022-04-27] MEDS ORDERED: Senokot S 8.6-50 MG TAB PO PRN (13:00)
[2022-04-27 17:22] VITALS: BP 135/84; TEMP 97
== END 2022-04-27 17:00 | disposition home or self-care (01) | DRG 189 ==
LOC: ERS 18:54 → ERHOLD 20:34 → NEURO 04-22 14:59
PROVIDERS: ADMIT Internal Medicine; ATTEND Internal Medicine
DX: J96.21 Acute and chronic respiratory failure with hypoxia (principal); J44.1 Chronic obstructive pulmonary disease with (acute) exacerbation; E66.2 Morbid (severe) obesity with alveolar hypoventilation; Z20.822 Contact with and (suspected) exposure to COVID-19; M19.90 Unspecified osteoarthritis, unspecified site; F41.9 Anxiety disorder, unspecified; E11.9 Type 2 diabetes mellitus without complications; F17.210 Nicotine dependence, cigarettes, uncomplicated; K76.0 Fatty (change of) liver, not elsewhere classified; D69.6 Thrombocytopenia, unspecified; Z85.038 Personal history of other malignant neoplasm of large intestine; Z90.09 Acquired absence of other part of head and neck; Z79.51 Long term (current) use of inhaled steroids; Z79.899 Other long term (current) drug therapy; Z68.36 Body mass index [BMI] 36.0-36.9, adult; Z79.82 Long term (current) use of aspirin; Z79.84 Long term (current) use of oral hypoglycemic drugs
CPT/HCPCS: 36415; 36600; 71045; 80048; 80053; 82805; 83036; 83690; 84484; 85025; 93005; 93306; 96374; J0456; J1650; J2920; J2930; J7050; J7512; J7620

== ENCOUNTER 2022-06-05 00:43 | Emergency (ER) | payer MEDICARE ==
[2022-06-05] MEDS ORDERED: Ketorolac Tromethamine 30 MG/ML VIAL ONE (01:08)
[2022-06-05 01:25] LABS: #Basophils 0.1 thou/uL (0.0-0.2); #Eosinphils 0.1 thou/uL (0.0-0.7); #Lymphocytes 2.9 thou/uL (1.20-3.40); #Monocytes 1.1 thou/uL (0.11-0.59); #Neutrophils 11.5 thou/uL (1.40-6.50); %Basophils 0.7 % (0.0-1.0); %Eosinophils 0.8 % (0.0-10.0); %Lymphocytes 18.4 % (21.0-51.0); %Monocytes 6.9 % (0.0-10.0); %Neutrophils 73.1 % (42.0-75.0); Hemoglobin 16.7 g/dL (12.0-16.0); Mean Corpuscular HGB CONC 35.2 g/dL (32.0-36.0); Mean Corpuscular Hemoglobin 34.9 pg (27.0-31.0); Mean Platelet Volume 7.9 fL (7.4-10.4); Platelet Count 206 10x3/uL (130-400); RBC Distribution Width 12.2 % (11.5-14.5); Red Blood Cell (RBC) Count 4.79 mill/uL (4.20-5.40); White Blood Cell (WBC) Count 15.8 10x3/uL (4.8-10.8)
[2022-06-05 01:50] LABS: ALT (SGPT) 42 U/L (8-55); AST (SGOT) 16 U/L (5-34); Albumin 3.6 g/dL (3.5-5.0); Alkaline Phosphatase 72 U/L (40-110); Anion Gap 17 mmol/L (10-20); BUN (Urea Nitrogen) 20 mg/dL (9.8-20.1); Bilirubin, Total 0.4 mg/dL (0.2-1.2); CK (CPK) 14 U/L (29-168); Calc. Creatinine Clearance 0 mL/min (70-130); Calcium 9.6 mg/dL (7.8-10.44); Carbon Dioxide 36 mmol/L (22-29); Chloride 89 mmol/L (98-107); Estimated GFR 97; Globulin 2.6 g/dL (2.4-3.5); Glucose 132 mg/dL (70-105); Potassium 3.9 mmol/L (3.5-5.1); Protein, Total 6.2 g/dL (6.0-8.3); Sodium 138 mmol/L (136-145)
[2022-06-05] MEDS ORDERED: HYDROcodone/Acetaminophen 5/325 mg Tablet ONE (02:36)
== END 2022-06-05 03:50 | disposition home or self-care (01) ==
LOC: ERS 00:43
DX: M79.604 Pain in right leg (principal); M79.605 Pain in left leg; J44.9 Chronic obstructive pulmonary disease, unspecified; E11.9 Type 2 diabetes mellitus without complications; F17.210 Nicotine dependence, cigarettes, uncomplicated; Z79.82 Long term (current) use of aspirin; Z79.84 Long term (current) use of oral hypoglycemic drugs; Z79.899 Other long term (current) drug therapy
CPT/HCPCS: 36415; 80053; 82550; 85025; 96372; 99283; J1885

== ENCOUNTER 2022-12-30 10:04 | Outpatient (CLI) | payer MEDICARE | END 2022-12-30 10:05 | disposition home or self-care (01) | LOC: RAD 10:04 | PROVIDERS: ATTEND Internal Medicine Critical Care Medicine | DX: R06.00 Dyspnea, unspecified (principal) | CPT/HCPCS: 71046 ==

== ENCOUNTER 2023-06-25 13:24 | Inpatient (IN) | payer MEDICARE ==
[2023-06-25] MEDS ORDERED: methylPREDNISolone Sod Succ/PF 125 MG/2 ML VIAL ONE (14:01)
[2023-06-25] MEDS ORDERED: Sodium Chloride 0.9% 100 ML ONE (14:01)
[2023-06-25] MEDS ORDERED: Magnesium 2 GM/50 ML BAG (IN WATER) ONE (14:01)
[2023-06-25] MEDS ORDERED: cefTRIAXone (ROCEPHIN) 1 GM VIAL ONE (14:01)
[2023-06-25 14:19] LABS: #Monocytes 1.1 thou/uL (0.11-0.59); #Neutrophils 8.7 thou/uL (1.40-6.50); %Basophils 0.3 % (0.0-1.0); %Eosinophils 0.3 % (0.0-10.0); %Lymphocytes 14.1 % (21.0-51.0); %Monocytes 9.2 % (0.0-10.0); %Neutrophils 75.8 % (42.0-75.0); Hematocrit 48.6 % (36.0-47.0); Mean Corpuscular HGB CONC 30.9 g/dL (32.0-36.0); Mean Corpuscular Hemoglobin 30.1 pg (27.0-31.0); Mean Corpuscular Volume 97.6 fl (78.0-98.0); Mean Platelet Volume 10.8 fL (7.4-10.4); Platelet Count 198 10x3/uL (130-400); Red Blood Cell (RBC) Count 4.98 mill/uL (4.20-5.40); White Blood Cell (WBC) Count 11.5 10x3/uL (4.8-10.8)
[2023-06-25 14:28] LABS: Base Excess 9.5 mEq/L (-2.0 to +3.0); Calcium, Ionized (venous) 1.13 mmol/L (1.16-1.32); Chloride (VBG) 93 mmol/L (98-106); Hematocrit-VBG 46 % (36.0-47.0); Hemoglobin (Hb) 15.6 g/dL (11.7-16.0); Potassium (VBG) 3.59 mmol/L (3.70-5.30); Sodium 145 mmol/L (133-146); pH (venous) 7.319 (7.32-7.43)
[2023-06-25 14:31] LABS: Actual Bicarbonate (HCO3v) 39.4 mEq/L (22-28)
[2023-06-25 14:49] LABS: ALT (SGPT) 16 U/L (8-55); AST (SGOT) 12 U/L (5-34); Albumin 4.1 g/dL (3.4-4.8); Alkaline Phosphatase 103 U/L (40-110); BUN (Urea Nitrogen) 16 mg/dL (9.8-20.1); Bilirubin, Total 0.3 mg/dL (0.2-1.2); Calc. Creatinine Clearance 0 mL/min (70-130); Calcium 9.8 mg/dL (7.8-10.44); Estimated GFR 99; Globulin 3.1 g/dL (2.4-3.5); Glucose 117 mg/dL (80-115); Protein, Total 7.2 g/dL (5.8-8.1)
[2023-06-25 14:50] LABS: Chloride 93 mmol/L (98-107); Potassium 3.4 mmol/L (3.5-5.1); Sodium 145 mmol/L (136-145)
[2023-06-25 14:51] LABS: Troponin I 0.022 ng/mL (< 0.028)
[2023-06-25 14:59] LABS: Anion Gap 20 mmol/L (10-20); Carbon Dioxide 35 mmol/L (23-31)
[2023-06-25] MEDS ORDERED: Nicotine 14 MG PATCH TD PRN (16:25)
[2023-06-25] MEDS ORDERED: Ondansetron PF 4 MG/2 ML Vial IVP PRN (16:25)
[2023-06-25] MEDS ORDERED: Simethicone Chewable 80 MG TAB PO PRN (16:25)
[2023-06-25] MEDS ORDERED: Dextrose 5% in Water 1,000 ML IV PRN (16:25)
[2023-06-25] MEDS ORDERED: Dextrose 50% Abboject 50 ML SYRINGE SLOW IVP PRN (16:25)
[2023-06-25] MEDS ORDERED: Glucagon 1 MG/ML KIT IM PRN (16:25)
[2023-06-25] MEDS ORDERED: hydrOXYzine 25 MG TAB PO PRN (16:25)
[2023-06-25] MEDS ORDERED: Furosemide 20 MG/2 ML VIAL SLOW IVP SCH (16:30)
[2023-06-25] MEDS ORDERED: Azithromycin 500 MG VIAL ONE (18:33)
[2023-06-25] MEDS: Ipratropium/Albuterol 3 ML NEB NEB SCH ×2 (19:27→23:39)
[2023-06-25] MEDS: Mometasone/Formoterol 200/5 60 PUFF INH SCH (19:27)
[2023-06-25] MEDS: Simvastatin 10 MG TAB PO SCH (20:49)
[2023-06-25] MEDS: Gabapentin 300 MG CAP PO SCH (20:49)
[2023-06-25] MEDS: HumaLOG 300 UNITS/3 ML VIAL SC PRN (20:58)
[2023-06-25 22:48] VITALS: BMI 35.5
[2023-06-25] MEDS ORDERED: Ipratropium/Albuterol 3 ML NEB ONE (23:35)
[2023-06-26] MEDS: methylPREDNISolone Sod Succ 40 MG VIAL IVP SCH ×4 (00:21→17:38)
[2023-06-26] MEDS: Acetaminophen 325 MG TAB PO PRN ×2 (01:12→12:29)
[2023-06-26 05:08] LABS: #Monocytes 0.1 thou/uL (0.11-0.59); #Neutrophils 8.6 thou/uL (1.40-6.50); %Basophils 0.1 % (0.0-1.0); %Lymphocytes 6.2 % (21.0-51.0); %Neutrophils 92.1 % (42.0-75.0); Hematocrit 44.4 % (36.0-47.0); Hemoglobin 13.9 g/dL (12.0-16.0); Mean Corpuscular HGB CONC 31.3 g/dL (32.0-36.0); Mean Corpuscular Hemoglobin 30.6 pg (27.0-31.0); Mean Corpuscular Volume 97.8 fl (78.0-98.0); Mean Platelet Volume 11.2 fL (7.4-10.4); Platelet Count 192 10x3/uL (130-400); RBC Distribution Width 12.9 % (11.5-14.5); Red Blood Cell (RBC) Count 4.54 mill/uL (4.20-5.40); White Blood Cell (WBC) Count 9.4 10x3/uL (4.8-10.8)
[2023-06-26 05:36] LABS: BUN (Urea Nitrogen) 16 mg/dL (9.8-20.1); Calc. Creatinine Clearance 155 mL/min (70-130); Calcium 9.2 mg/dL (7.8-10.44); Estimated GFR 103; Glucose 172 mg/dL (80-115)
[2023-06-26 05:44] LABS: Anion Gap 16 mmol/L (10-20); Carbon Dioxide 34 mmol/L (23-31); Chloride 92 mmol/L (98-107); Potassium 4.4 mmol/L (3.5-5.1); Sodium 138 mmol/L (136-145)
[2023-06-26] MEDS: Furosemide 20 MG/2 ML VIAL SLOW IVP SCH ×2 (06:09→14:36)
[2023-06-26] MEDS: HumaLOG 300 UNITS/3 ML VIAL SC PRN ×3 (06:14→21:03)
[2023-06-26] MEDS: Ipratropium/Albuterol 3 ML NEB NEB SCH ×6 (07:51→23:22)
[2023-06-26] MEDS: Mometasone/Formoterol 200/5 60 PUFF INH SCH ×2 (08:02→18:51)
[2023-06-26] MEDS: Amitriptyline HCl 25 MG TAB PO SCH (09:05)
[2023-06-26] MEDS: Aspirin 81 mg Enteric Coated Tablet PO SCH (09:05)
[2023-06-26] MEDS: Gabapentin 300 MG CAP PO SCH ×3 (09:06→20:01)
[2023-06-26] MEDS: dilTIAZem CD 120 MG CAP PO SCH (09:06)
[2023-06-26] MEDS ORDERED: cefTRIAXone\\ROCEPHIN 1 GM in Sodium Chloride 0.9% 100 ML IVPB SCH (12:00)
[2023-06-26] MEDS: ALPRAZolam 0.25 MG TAB PO PRN (12:29)
[2023-06-26] MEDS ORDERED: Azithromycin 500 MG in Sodium Chloride 0.9% 250 ML 250 ML IVPB SCH (17:00)
[2023-06-26] MEDS: Simvastatin 10 MG TAB PO SCH (20:01)
[2023-06-27] MEDS: methylPREDNISolone Sod Succ 40 MG VIAL IVP SCH ×2 (00:12→05:00)
[2023-06-27] MEDS: ALPRAZolam 0.25 MG TAB PO PRN (00:13)
[2023-06-27] MEDS: Ipratropium/Albuterol 3 ML NEB NEB SCH ×3 (03:10→10:03)
[2023-06-27] MEDS: HumaLOG 300 UNITS/3 ML VIAL SC PRN (05:44)
[2023-06-27] MEDS: Mometasone/Formoterol 200/5 60 PUFF INH SCH (07:02)
[2023-06-27] MEDS ORDERED: HumaLOG 300 UNITS/3 ML VIAL SC PRN (08:29)
[2023-06-27] MEDS ORDERED: Furosemide 40 MG TAB PO SCH (09:00)
[2023-06-27] MEDS ORDERED: FLU VACC QS2023-24(6MOS UP)/PF 60 MCG/0.5 ML SYRINGE IM ONE (09:00)
[2023-06-27] MEDS: Gabapentin 300 MG CAP PO SCH (09:11)
[2023-06-27] MEDS: Aspirin 81 mg Enteric Coated Tablet PO SCH (09:12)
[2023-06-27] MEDS: dilTIAZem CD 120 MG CAP PO SCH (09:12)
[2023-06-27] MEDS: Amitriptyline HCl 25 MG TAB PO SCH (09:12)
[2023-06-27] MEDS ORDERED: methylPREDNISolone Sod Succ 40 MG VIAL IVP SCH (13:00)
[2023-06-27 13:14] VITALS: BP 136/83; TEMP 98.2
== END 2023-06-27 14:39 | disposition home or self-care (01) | DRG 189 ==
LOC: ERS 13:24 → IMCU/EMU 15:45 → T4-B 06-26 15:47
PROVIDERS: ADMIT Family Medicine; ATTEND Family Medicine
DX: J96.21 Acute and chronic respiratory failure with hypoxia (principal); G93.41 Metabolic encephalopathy; J44.1 Chronic obstructive pulmonary disease with (acute) exacerbation; F17.210 Nicotine dependence, cigarettes, uncomplicated; E11.9 Type 2 diabetes mellitus without complications; I10 Essential (primary) hypertension; E78.5 Hyperlipidemia, unspecified; F41.9 Anxiety disorder, unspecified; E66.9 Obesity, unspecified; E87.6 Hypokalemia; Z90.49 Acquired absence of other specified parts of digestive tract; Z79.899 Other long term (current) drug therapy; Z99.81 Dependence on supplemental oxygen; Z79.84 Long term (current) use of oral hypoglycemic drugs; Z79.82 Long term (current) use of aspirin; Z98.890 Other specified postprocedural states; Z90.89 Acquired absence of other organs; Z82.49 Family history of ischemic heart disease and other diseases of the circulatory system; J44.9 Chronic obstructive pulmonary disease, unspecified; Z71.6 Tobacco abuse counseling; Z68.35 Body mass index [BMI] 35.0-35.9, adult
CPT/HCPCS: 36415; 36416; 70450; 71045; 80048; 80053; 82805; 83880; 84484; 85025; 93005; 94640; 94660; 96365; 96366; 96368; 96375; J0456; J0696; J1650; J1815; J1940; J2920; J2930; J3475; J3490; J7050; J7611; J7620